=== PATIENT | male | born 1945 | race Caucasian/White ===

== ENCOUNTER 2021-03-18 10:08 | Inpatient (IN) | payer MEDICARE, MEDICAID ==
[~2021-03-18] VITALS: Ht 188 cm; Wt 122.9 kg
[2021-03-18] MEDS ORDERED: KETAMINE 10 MG/ML, 20ML ONE (10:14)
--- NOTE | 2021-03-18 10:17 | NUR ---
THIS IS A 76 YEAR OLD MALE WHO WAS FLOWN IN BY [facility] FROM PLUMAS DUE TO ACUTE SOB. PT HAS A HX OF ACUTE RESP FAILURES, AFIB, BPH, CELLULITES, COPD, DEBILITY, DVT, HR, INSOMIA, OBESITY, DM II,AMBIKA STATUS ULCER. PT WAS TREATED WITH ROCEFIN, EES, SOLUMEDREAL 125MG IV PRIOR. PT ON A NOREPI GTT AT 17MCG, HE WAS GIVEN KETAMINE IN ROUTE DUE TO BEING AGGITATED AND AGGRESSIVE TAKING BIPAP OFF. 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 PT HAS A SHERMAN TO DD. SOCIAL HX, PT LIVES ALONE, NO FAMILY, HOUSE BURNED DOWN, AND WORRIED ABOUT CATS, PER EMS THEY NOW THE PATIENT AND WILL BE LOOKING FOR THEM.
[2021-03-18] MEDS ORDERED: ALBUTEROL/IPRATROPIUM 2.5MG/0.5MG, 3 ML ONE (10:24)
[2021-03-18] MEDS ORDERED: SODIUM CHLORIDE FLUSH 10ML SYR IVF ONE (10:30)
[2021-03-18] MEDS ORDERED: NOREPINEPHRINE 8 MG in SODIUM CHLORIDE 0.9% 242 ML IV PRN ×2 (10:30→14:00)
[2021-03-18] MEDS ORDERED: FENTANYL PF 100 MCG/2ML IVPush ONE (10:30)
[2021-03-18] MEDS ORDERED: ALBUTEROL/IPRATROPIUM 2.5MG/0.5MG, 3 ML NEB ONE (10:30)
[2021-03-18] MEDS ORDERED: FENTANYL PF 100 MCG/2ML ONE (10:35)
[2021-03-18] MEDS ORDERED: FURO-93 PO (10:37)
[2021-03-18] MEDS ORDERED: ATOR20TA PO (10:37)
[2021-03-18 10:38] LABS: BASOPHILS % (AUTO) 0 % (0-1); EOSINOPHILS % (AUTO) 0 % (1-7); LYMPHOCYTES % (AUTO) 3 % (22-44); MEAN CORPUSCULAR HEMOGLOBIN 28.1 pg (27.5-34.5); MEAN CORPUSCULAR HGB CONC 31.7 g/dL (33.2-36.2); MEAN PLATELET VOLUME 7.5 fL (7.4-10.4); MONOCYTES % (AUTO) 1 % (2-9); NEUTROPHILS % (AUTO) 96 % (42-75); PLATELET COUNT 120 x10^3/uL (130-400); RED BLOOD COUNT 4.36 x10^6/uL (4.38-5.82); RED CELL DISTRIBUTION WIDTH 17.7 % (9.4-14.8)
[2021-03-18] MEDS ORDERED: DOCU100C33 PO (10:38)
[2021-03-18] MEDS ORDERED: FAMO40TA61 PO (10:39)
[2021-03-18] MEDS ORDERED: FLUT1DIS IH (10:39)
[2021-03-18] MEDS ORDERED: LISI-167 PO (10:40)
[2021-03-18] MEDS ORDERED: LEVO25TA4 PO (10:40)
[2021-03-18 10:41] LABS: FIO2 35 %
[2021-03-18] MEDS ORDERED: GLIP5TAB10 PO (10:41)
[2021-03-18] MEDS ORDERED: GABA600T7 PO (10:41)
[2021-03-18] MEDS ORDERED: METF500T27 PO (10:42)
[2021-03-18] MEDS ORDERED: RIVA20TA PO (10:42)
[2021-03-18] MEDS ORDERED: FINA5TAB4 PO (10:43)
[2021-03-18] MEDS ORDERED: TERA10CA3 PO (10:43)
[2021-03-18] MEDS ORDERED: METO-95 PO (10:44)
[2021-03-18 10:49] LABS: ALBUMIN 2.6 g/dL (3.4-5.0); ANION GAP 5 mmol/L (5-15); CALCIUM 8.5 mg/dL (8.5-10.1); CHLORIDE 107 mmol/L (98-107)
[2021-03-18 10:53] LABS: ALANINE AMINOTRANSFERASE 106 U/L (12-78); ALKALINE PHOSPHATASE 153 U/L (45-117); BILIRUBIN,TOTAL 0.5 mg/dL (0.2-1.0); TOTAL PROTEIN 7.2 g/dL (6.4-8.2); TROPONIN I < 0.015 ng/mL (0.000-0.045)
[2021-03-18 10:55] LABS: MICROSCOPIC INDICATED
--- NOTE | 2021-03-18 10:58 | NUR ---
XRAY, LAB DRAWN, BLOOD CULTURES DRAWN X 2
[2021-03-18 11:00] LABS: AMPHETAMINE SCREEN, URINE Positive (Negative); BARBITURATE SCREEN, URINE Negative (Negative); BENZODIAZEPINE SCREEN, URINE Negative (Negative); CANNABINOID SCREEN, URINE Negative (Negative); COCAINE SCREEN, URINE Negative (Negative); METHADONE SCREEN, URINE Negative (Negative); OPIATE SCREEN, URINE Negative (Negative)
--- NOTE | 2021-03-18 11:01 | NUR ---
PT SLEEPING, REPOSITIONED FOR COMFORT.
[2021-03-18] MEDS ORDERED: FUROSEMIDE 40 MG/4 ML ONE (11:10)
[2021-03-18] MEDS ORDERED: FUROSEMIDE 40 MG/4 ML IV ONE (11:30)
--- NOTE | 2021-03-18 11:32 | NUR ---
REPOSITIONED WITH PILLOW, TURNED ON RIGHT SIDE. PT TOLERATED WELL
--- NOTE | 2021-03-18 12:44 | NUR ---
BREAK RN: PT CONT ON BIPAP, MOSTLY SLEEPING. CONT ON LEVOPHED. AWAITING TRANSPORT TO CT AND ROOM ASSIGNMENT.
--- NOTE | 2021-03-18 13:01 | NUR ---
PER DR RODRIGUEZ, LEVOPHED DECREASED TO 0.07MCG/KG/MIN. PT BP 120/63.
--- NOTE | 2021-03-18 13:06 | NUR ---
REPORT TO NESTOR BRIGGS
--- NOTE | 2021-03-18 13:37 | NUR ---
TO CT SCAN AND BACK, PT REMAINS SLEEPY, OPENS EYES TO NAME
[2021-03-18] MEDS ORDERED: OMNIPAQUE 350 MG/ML, 75ML BOTTLE ONE (13:42)
--- NOTE | 2021-03-18 13:43 | NUR ---
REPORT TO [facility]TUNE OF CARE DISCUSSED
[2021-03-18] MEDS ORDERED: ONDANSETRON 2MG/ML, 2ML IVPush PRN (14:00)
[2021-03-18] MEDS ORDERED: POLYETHYLENE GLYCOL 17 GM PACKET PO PRN (14:00)
[2021-03-18] MEDS ORDERED: BISACODYL 10 MG SUPP PR PRN (14:00)
[2021-03-18] MEDS ORDERED: ENALAPRILAT 1.25 MG/ML, 2ML IVPush PRN (14:00)
[2021-03-18] MEDS ORDERED: ACETAMINOPHEN 325 MG TABLET PO PRN (14:00)
[2021-03-18] MEDS ORDERED: ENOXAPARIN 40 MG/0.4 ML SQ SCH (14:00)
[2021-03-18] MEDS ORDERED: morphine SULFATE 10 MG/ML, 1ML IVPush PRN (14:00)
[2021-03-18] MEDS ORDERED: LABETALOL 5MG/ML, 20ML IVPush PRN (14:00)
[2021-03-18] MEDS ORDERED: OXYcodone IR 5MG TABLET PO PRN (14:00)
--- NOTE | 2021-03-18 14:01 | NUR ---
PT TO CCU WITH BELONGINGS
[2021-03-18] MEDS: AZITHROMYCIN 500 MG in SODIUM CHLORIDE 0.9% 250 ML IV SCH (14:57)
[2021-03-18] MEDS: CEFTRIAXONE 1,000 MG in DEXTROSE 5% 50 ML IVPB SCH (14:57)
[2021-03-18] MEDS ORDERED: ALBUTEROL HFA 90 MCG/SPRAY INH PRN (15:00)
[2021-03-18 18:35] LABS: TROPONIN I < 0.015 ng/mL (0.000-0.045)
[2021-03-18 18:52] VITALS: BP 119/71
[2021-03-19 01:18] LABS: TROPONIN I < 0.015 ng/mL (0.000-0.045)
[2021-03-19 01:35] VITALS: BP 97/55
[2021-03-19 05:26] LABS: BASOPHILS % (AUTO) 0 % (0-1); EOSINOPHILS % (AUTO) 0 % (1-7); LYMPHOCYTES % (AUTO) 14 % (22-44); MEAN CORPUSCULAR HEMOGLOBIN 28.8 pg (27.5-34.5); MEAN CORPUSCULAR HGB CONC 32.4 g/dL (33.2-36.2); MEAN PLATELET VOLUME 7.8 fL (7.4-10.4); MONOCYTES % (AUTO) 7 % (2-9); NEUTROPHILS % (AUTO) 79 % (42-75); PLATELET COUNT 105 x10^3/uL (130-400); RED BLOOD COUNT 3.97 x10^6/uL (4.38-5.82); RED CELL DISTRIBUTION WIDTH 17.4 % (9.4-14.8)
[2021-03-19 05:31] LABS: ALBUMIN 2.3 g/dL (3.4-5.0); ANION GAP 2 mmol/L (5-15); CALCIUM 8.2 mg/dL (8.5-10.1); CHLORIDE 108 mmol/L (98-107)
[2021-03-19 05:34] LABS: ALANINE AMINOTRANSFERASE 90 U/L (12-78); ALKALINE PHOSPHATASE 134 U/L (45-117); BILIRUBIN,TOTAL 0.3 mg/dL (0.2-1.0); TOTAL PROTEIN 6.3 g/dL (6.4-8.2)
[2021-03-19] MEDS: LORazepam 1MG TABLET PO PRN ×3 (06:11→20:16)
[2021-03-19] MEDS: PANTOPRAZOLE 40 MG IV IVPush SCH (08:36)
[2021-03-19] MEDS: SENNA/DOCUSATE TABLET PO SCH (08:36)
[2021-03-19 09:26] VITALS: BP 101/54
[2021-03-19] MEDS: AZITHROMYCIN 500 MG in SODIUM CHLORIDE 0.9% 250 ML IV SCH (14:22)
[2021-03-19] MEDS: CEFTRIAXONE 1,000 MG in DEXTROSE 5% 50 ML IVPB SCH (14:22)
[2021-03-19] MEDS: methylPREDNISolone SOD SUCC 125 MG/2 ML IVPush SCH ×2 (14:22→20:17)
[2021-03-19 14:56] VITALS: BP 145/77
[2021-03-19] MEDS ORDERED: ALBUTEROL SULFATE 2.5 MG/3 ML HHN PRN (15:00)
[2021-03-19] MEDS ORDERED: FUROSEMIDE 40 MG/4 ML IV ONE (15:00)
[2021-03-19] MEDS: metFORMIN 500 MG TABLET PO SCH (17:20)
[2021-03-19] MEDS: INSULIN LISPRO 100 UNITS/ML, PEN SQ-INSULIN SCH ×2 (18:20→20:25)
[2021-03-19 19:55] VITALS: BP 138/69
[2021-03-19] MEDS: RIVAROXABAN 20 MG TABLET PO SCH (20:16)
[2021-03-19] MEDS: GABAPENTIN 300 MG CAPSULE PO SCH (20:17)
[2021-03-19] MEDS: TERAZOSIN 5MG CAPSULE PO SCH (20:17)
[2021-03-19] MEDS: ATORVASTATIN 20 MG TABLET PO SCH (20:17)
[2021-03-19] MEDS ORDERED: BUDESONIDE 0.5 MG/2 ML INHA HHN SCH (21:00)
[2021-03-20] MEDS: methylPREDNISolone SOD SUCC 125 MG/2 ML IVPush SCH (02:41)
[2021-03-20 02:50] VITALS: BP 151/77
[2021-03-20 05:47] LABS: BASOPHILS % (AUTO) 0 % (0-1); EOSINOPHILS % (AUTO) 0 % (1-7); LYMPHOCYTES % (AUTO) 5 % (22-44); MEAN CORPUSCULAR HEMOGLOBIN 28.4 pg (27.5-34.5); MEAN CORPUSCULAR HGB CONC 31.9 g/dL (33.2-36.2); MEAN PLATELET VOLUME 7.6 fL (7.4-10.4); MONOCYTES % (AUTO) 1 % (2-9); NEUTROPHILS % (AUTO) 94 % (42-75); PLATELET COUNT 115 x10^3/uL (130-400)
[2021-03-20 05:49] LABS: ALBUMIN 2.5 g/dL (3.4-5.0); ANION GAP 0 mmol/L (5-15); CALCIUM 8.6 mg/dL (8.5-10.1); CHLORIDE 102 mmol/L (98-107)
[2021-03-20 05:53] LABS: ALANINE AMINOTRANSFERASE 71 U/L (12-78); ALKALINE PHOSPHATASE 138 U/L (45-117); BILIRUBIN,TOTAL 0.3 mg/dL (0.2-1.0); CREATININE 0.71 mg/dL (0.7-1.3); TOTAL PROTEIN 6.8 g/dL (6.4-8.2)
[2021-03-20] MEDS: LEVOTHYROXINE 25 MCG TABLET PO SCH (06:06)
[2021-03-20 07:22] VITALS: BP 113/68
[2021-03-20] MEDS: PANTOPRAZOLE 40 MG IV IVPush SCH (08:55)
[2021-03-20] MEDS: SENNA/DOCUSATE TABLET PO SCH (08:55)
[2021-03-20] MEDS: methylPREDNISolone SOD SUCC 40 MG/ML IVPush SCH ×2 (08:55→17:57)
[2021-03-20] MEDS: metFORMIN 500 MG TABLET PO SCH ×2 (08:55→17:57)
[2021-03-20] MEDS: FINASTERIDE 5 MG TABLET PO SCH (08:56)
[2021-03-20] MEDS ORDERED: LISINOPRIL 10 MG TABLET PO SCH (09:00)
[2021-03-20] MEDS ORDERED: METOPROLOL SUCCINATE 100 MG TAB.ER.24H PO SCH (09:00)
[2021-03-20] MEDS: INSULIN LISPRO 100 UNITS/ML, PEN SQ-INSULIN SCH ×4 (09:04→20:22)
[2021-03-20 13:25] VITALS: BP 136/72
[2021-03-20] MEDS ORDERED: ALBUTEROL SULFATE 2.5 MG/3 ML HHN SCH (15:00)
[2021-03-20 20:34] VITALS: BP 106/64
[2021-03-20] MEDS: RIVAROXABAN 20 MG TABLET PO SCH (20:36)
[2021-03-20] MEDS: ATORVASTATIN 20 MG TABLET PO SCH (20:36)
[2021-03-20] MEDS: TERAZOSIN 5MG CAPSULE PO SCH (20:36)
[2021-03-20] MEDS: GABAPENTIN 300 MG CAPSULE PO SCH (20:36)
[2021-03-21] MEDS: methylPREDNISolone SOD SUCC 40 MG/ML IVPush SCH ×3 (01:01→16:26)
[2021-03-21 01:30] VITALS: BP 114/56
[2021-03-21] MEDS: DILTIAZEM 5 MG/ML, 5ML IVPush PRN (02:06)
[2021-03-21] MEDS: LEVOTHYROXINE 25 MCG TABLET PO SCH (06:16)
[2021-03-21] MEDS: INSULIN LISPRO 100 UNITS/ML, PEN SQ-INSULIN SCH ×4 (07:00→20:30)
[2021-03-21 07:23] VITALS: BP 103/59
[2021-03-21] MEDS: metFORMIN 500 MG TABLET PO SCH ×2 (08:28→16:26)
[2021-03-21] MEDS: PANTOPRAZOLE 40 MG IV IVPush SCH (08:28)
[2021-03-21] MEDS: FINASTERIDE 5 MG TABLET PO SCH (08:29)
[2021-03-21] MEDS: SENNA/DOCUSATE TABLET PO SCH (08:31)
[2021-03-21] MEDS: DILTIAZEM CD 180 MG CAP.ER.24H PO SCH (10:31)
[2021-03-21] MEDS: ALBUTEROL/IPRATROPIUM 2.5MG/0.5MG, 3 ML NPPB SCH ×3 (11:00→20:05)
[2021-03-21 12:46] VITALS: BP 104/52
[2021-03-21] MEDS: LORazepam 0.5MG TABLET PO PRN (14:08)
[2021-03-21 19:36] VITALS: BP 118/72
[2021-03-21] MEDS: BUDESONIDE 0.5 MG/2 ML INHA INH SCH (20:05)
[2021-03-21] MEDS: RIVAROXABAN 20 MG TABLET PO SCH (20:29)
[2021-03-21] MEDS: ATORVASTATIN 20 MG TABLET PO SCH (20:30)
[2021-03-21] MEDS: TERAZOSIN 5MG CAPSULE PO SCH (20:30)
[2021-03-21] MEDS: GABAPENTIN 300 MG CAPSULE PO SCH (20:30)
[2021-03-22] MEDS: methylPREDNISolone SOD SUCC 40 MG/ML IVPush SCH ×3 (01:08→16:50)
[2021-03-22 01:45] VITALS: BP 109/70
[2021-03-22] MEDS: LEVOTHYROXINE 25 MCG TABLET PO SCH (06:11)
[2021-03-22] MEDS ORDERED: PANTOPRAZOLE 40MG TABLET PO SCH (06:30)
[2021-03-22 06:31] LABS: BASOPHILS % (AUTO) 0 % (0-1); EOSINOPHILS % (AUTO) 0 % (1-7); LYMPHOCYTES % (AUTO) 9 % (22-44); MEAN CORPUSCULAR HEMOGLOBIN 28.3 pg (27.5-34.5); MEAN CORPUSCULAR HGB CONC 32.1 g/dL (33.2-36.2); MEAN PLATELET VOLUME 7.6 fL (7.4-10.4); MONOCYTES % (AUTO) 3 % (2-9); NEUTROPHILS % (AUTO) 89 % (42-75); PLATELET COUNT 102 x10^3/uL (130-400); RED BLOOD COUNT 4.57 x10^6/uL (4.38-5.82); RED CELL DISTRIBUTION WIDTH 16.5 % (9.4-14.8)
[2021-03-22 06:43] LABS: CHLORIDE 100 mmol/L (98-107)
[2021-03-22 06:54] LABS: ANION GAP 4 mmol/L (5-15); CALCIUM 8.8 mg/dL (8.5-10.1); CREATININE 0.72 mg/dL (0.7-1.3)
[2021-03-22] MEDS: SENNA/DOCUSATE TABLET PO SCH (07:44)
[2021-03-22] MEDS: metFORMIN 500 MG TABLET PO SCH ×2 (07:45→16:50)
[2021-03-22] MEDS: DILTIAZEM CD 180 MG CAP.ER.24H PO SCH (07:46)
[2021-03-22 07:52] VITALS: BP 115/67
[2021-03-22] MEDS: ALBUTEROL/IPRATROPIUM 2.5MG/0.5MG, 3 ML NPPB SCH ×3 (08:25→16:00)
[2021-03-22] MEDS: BUDESONIDE 0.5 MG/2 ML INHA INH SCH ×2 (08:35→11:00)
[2021-03-22] MEDS: INSULIN LISPRO 100 UNITS/ML, PEN SQ-INSULIN SCH ×3 (09:16→16:00)
[2021-03-22] MEDS: FINASTERIDE 5 MG TABLET PO SCH (09:16)
[2021-03-22] MEDS: DILTIAZEM 5 MG/ML, 5ML IVPush PRN (10:14)
[2021-03-22] MEDS: LORazepam 0.5MG TABLET PO PRN (10:17)
[2021-03-22 15:23] VITALS: BP 116/57
[2021-03-22] MEDS ORDERED: RIVAROXABAN 20 MG TABLET PO SCH (17:00)
[2021-03-22] MEDS ORDERED: LEVO25TA2 PO (17:05)
[2021-03-22] MEDS ORDERED: GABA300C PO (17:05)
[2021-03-22] MEDS ORDERED: RIVA20TA PO (17:05)
[2021-03-22] MEDS ORDERED: FINA5TAB4 PO (17:05)
[2021-03-22] MEDS ORDERED: IPRA4AER INH (17:05)
[2021-03-22] MEDS ORDERED: ATOR20TA37 PO (17:05)
[2021-03-22] MEDS ORDERED: PANT40TA6 PO (17:05)
[2021-03-22] MEDS ORDERED: TERA5CAP3 PO (17:05)
[2021-03-22] MEDS ORDERED: DILT180C53 PO (17:05)
[2021-03-22] MEDS ORDERED: PRED5TAB PO (17:05)
[2021-03-22] MEDS ORDERED: INSU100I11 SQ-INSULIN (17:05)
[2021-03-22] MEDS ORDERED: SENN-211 PO (17:05)
[2021-03-22] MEDS ORDERED: IPRA3AMP30 NPPB (17:05)
[2021-03-22] MEDS ORDERED: METF500T17 PO (17:05)
[2021-03-22] MEDS ORDERED: GLIP5TAB10 PO (17:05)
== END 2021-03-22 18:32 | disposition home or self-care (01) | DRG 190 ==
LOC: ED 12:55 → EDIP 13:03 → CCU 13:53 → 5SO 19:54
PROVIDERS: ADMIT Internal Medicine; ATTEND Internal Medicine
PROC: 5A09357 Assistance with Respiratory Ventilation, Less than 24 Consecutive Hours, Continuous Positive Airway Pressure (ICD-10-PCS; principal; 2021-03-18)
PROC: 5A0935A Assistance with Respiratory Ventilation, Less than 24 Consecutive Hours, High Flow/Velocity Cannula (ICD-10-PCS; 2021-03-18)
DX: J44.1 Chronic obstructive pulmonary disease with (acute) exacerbation (principal); N17.0 Acute kidney failure with tubular necrosis; J96.01 Acute respiratory failure with hypoxia; E43 Unspecified severe protein-calorie malnutrition; J96.02 Acute respiratory failure with hypercapnia; E87.1 Hypo-osmolality and hyponatremia; D68.69 Other thrombophilia; I11.0 Hypertensive heart disease with heart failure; I45.10 Unspecified right bundle-branch block; D64.9 Anemia, unspecified; D69.6 Thrombocytopenia, unspecified; E03.9 Hypothyroidism, unspecified; E66.9 Obesity, unspecified; E11.9 Type 2 diabetes mellitus without complications; E78.5 Hyperlipidemia, unspecified; G62.9 Polyneuropathy, unspecified; I48.91 Unspecified atrial fibrillation; I50.9 Heart failure, unspecified; I87.8 Other specified disorders of veins; N40.0 Benign prostatic hyperplasia without lower urinary tract symptoms; Z20.822 Contact with and (suspected) exposure to COVID-19; F19.10 Other psychoactive substance abuse, uncomplicated; B96.20 Unspecified Escherichia coli [E. coli] as the cause of diseases classified elsewhere; Z66 Do not resuscitate; K21.9 Gastro-esophageal reflux disease without esophagitis; I95.9 Hypotension, unspecified; R79.89 Other specified abnormal findings of blood chemistry; R74.01 Elevation of levels of liver transaminase levels; R94.5 Abnormal results of liver function studies; Z79.01 Long term (current) use of anticoagulants; Z82.49 Family history of ischemic heart disease and other diseases of the circulatory system; Z86.19 Personal history of other infectious and parasitic diseases; Z86.718 Personal history of other venous thrombosis and embolism; Z87.891 Personal history of nicotine dependence; Z68.34 Body mass index [BMI] 34.0-34.9, adult
CPT/HCPCS: 36415; 36600; 71045; 71260; 80048; 80053; 80307; 81001; 82803; 82962; 83036; 83605; 83735; 83880; 84100; 84145; 84443; 84484; 85025; 87040; 87077; 87081; 87086; 87186; 93005; 93306; 94640; 94660; 99291; G0378; J0456; J0696; J1940; J7626; Q9967; U0005; C9113; J1815; J2920; J2930; J7050; U0003